=== PATIENT | male | born 1980 | race Caucasian/White ===

== ENCOUNTER 2016-12-07 11:27 | Emergency (ER) | payer OTHER ==
[2016-12-07 11:52] VITALS: BP 136/66; PULSE 64; RESP 18; TEMP 98.3
[2016-12-07] MEDS ORDERED: MAG HYDROX/AL HYDROX/SIMETH 30 ML, HYOSCYAMINE ELIXIR 10 ML, CIMETIDINE HCL 300 MG PO STA ×3 (15:22)
--- NOTE | 2016-12-07 15:26 | ED ---
General Adult HPI - General Chief complaint: Shortness of Breath Stated complaint: SOB/abdominal pain Time Seen by Provider: 12/07/16 15:11 Source: patient, family, RN notes reviewed Mode of arrival: ambulatory Limitations: no limitations - History of Present Illness Initial comments: Chief complaint and history of present illness a 36-year-old male here with his . Patient reports for the past week or longer has been having some epigastric discomfort. Also admits that he drinks a sixpack or more per night. He also admits to being slightly anxious. No associated radiation of discomfort pain is not made better or worse by doing anything. Has not tried any antacids. He does state that burping seems to help ease the discomfort. - Related Data Previous Rx's Medication Instructions Recorded Famotidine [Pepcid] 20 mg PO DAILY #40 tablet 12/07/16 Allergies Allergy/AdvReac Type Severity Reaction Status Date / Time No Known Allergies Allergy Verified 12/07/16 15:12 Review of Systems ROS Statement: Those systems with pertinent positive or pertinent negative responses have been documented in the HPI. Review of systems no visual acuity changes no complaint headache no chest pain no nausea or vomiting. He states he has a sensation of slight shortness of breath because of epigastric discomfort which is worse at night when he states his anxiety tends to increase. No change in color stool. No change in appetite. No sweats. No complaint of a neuro deficits. All systems were reviewed. Past medical problems none. Surgeries on the10 years old. No family history of cancer or heart disease. Patient denies ALLERGIES. He does chew tobacco warned of the complications of mouth cancer. Advised to stop. Drinks alcohol daily 4-6 cans of beer per day. Advised to decrease to significantly. family physician if needed ROS Other: All systems not noted in ROS Statement are negative. Past Medical History Past Medical History: No Reported History History of Any Multi-Drug Resistant Organisms: None Reported Additional Past Surgical History / Comment(s): jumana Past Psychological History: No Psychological Hx Reported Smoking Status: Never smoker Past Alcohol Use History: Daily Past Drug Use History: None Reported General Exam - General Exam Comments Initial Comments: General: The patient is awake and alert, in no distress, and does not appear acutely ill. Complains of mild epigastric discomfort and a sensation of shortness of breath when he lays down at night. Vital signs shows temperature 98.3 pulse 64 respiratory rate 18 pulse ox 90% room air blood pressure 136/66. Eye: Pupils are equal, , extra-ocular movements are intact; there is normal conjunctiva bilaterally. No signs of icterus. Ears, nose, mouth and throat: There are moist mucous membranes Neck: The neck is supple, there is no tenderness Cardiovascular: There is a regular rate and rhythm. No murmur, rub or gallop is appreciated. Respiratory: Lungs are clear to auscultation, respirations are non-labored, breath sounds are equal. No wheezes, stridor, rales, or rhonchi. Gastrointestinal: Soft, non-distended, non-tender abdomen without masses or organomegaly noted. There is no rebound or guarding present. No CVA tenderness. Bowel sounds are unremarkable. Back: There is no tenderness to palpation in the midline. There is no obvious deformity. No rashes noted. Musculoskeletal: Normal ROM, no tenderness, There is no pedal edema. There is no calf tenderness or swelling. Sensation intact. Neurological: No complaint of or any evidence of any neuro deficits. Skin: Skin is warm and dry and no rashes or lesions are noted. Limitations: no limitations Course Vital Signs 12/07/16 11:49 Temperature 98.3 F Pulse Rate 64 Respiratory 18 Rate Blood Pressure 136/66 O2 Sat by Pulse 98 Oximetry EKG Findings - EKG Comments: EKG Findings:: EKG was done and reviewed at 1540 showing normal sinus rhythm with first-degree AV block no acute ST elevation no ectopy no ischemic changes. Rate 64. Was 212 QRS 94 QT [address] Contreras Medical Decision Making - Medical Decision Making Medical decision making the patient's white count is 10.8 hemoglobin 15 hematocrit of 44 d-dimer normal at less than 0.17. Potassium is 4.2, BUN 12 creatinine 1.02 with a GFR greater than 60. Glucose 89. Amylase lipase normal limits. Total bilirubin mildly elevated at 1.6. No other elevated liver enzymes. Chest x-ray is done AP and lateral views and reviewed by radiologist his final impression is in no acute pulmonary process. As read by Dr. Wallace x-ray of the abdomen was also done and reviewed by radiologist his impression is nonspecific abdomen as read by Dr. Wallace. Patient was given a GI cocktail which seemed to help him significantly. We discussed his labs. Mildly elevated total bilirubin was discussed. Decreasing the amount of alcohol he consumes was strongly suggested. He stopped to go on Pepcid 20 mg daily. He is to use antacids as needed, one hour after meals and at bedtime. Also advised to follow-up with family physician. Told to stay away from greasy fatty foods and he may need to have an ultrasound if symptoms persist for the stability of gallbladder issues. - Lab Data Result diagrams: 12/07/16 16:00 12/07/16 16:00 Lab Results 12/07/16 12/07/16 12/07/16 Range/Units 16:00 16:00 16:00 WBC 10.8 H (3.8-10.6) k/uL RBC 5.06 (4.30-5.90) m/uL Hgb 15.2 (13.0-17.5) gm/dL Hct 44.8 (39.0-53.0) % MCV 88.5 (80.0-100.0) fL MCH 30.0 (25.0-35.0) pg MCHC 33.9 (31.0-37.0) g/dL RDW 12.6 (11.5-15.5) % Plt Count 288 (150-450) k/uL Neutrophils % 73 % Lymphocytes % 19 % Monocytes % 4 % Eosinophils % 0 % Basophils % 1 % Neutrophils # 7.9 H (1.3-7.7) k/uL Lymphocytes # 2.1 (1.0-4.8) k/uL Monocytes # 0.4 (0-1.0) k/uL Eosinophils # 0.0 (0-0.7) k/uL Basophils # 0.1 (0-0.2) k/uL D-Dimer (<0.60) mg/L FEU Sodium 140 (137-145) mmol/L Potassium 4.2 (3.5-5.1) mmol/L Chloride 104 (98-107) mmol/L Carbon Dioxide 28 (22-30) mmol/L Anion Gap 8 mmol/L BUN 12 (9-20) mg/dL Creatinine 1.02 (0.66-1.25) mg/dL Est GFR (MDRD) Af Amer >60 (>60 ml/min/1.73 sqM) Est GFR (MDRD) Non-Af >60 (>60 ml/min/1.73 sqM) Glucose 89 (74-99) mg/dL Calcium 9.5 (8.4-10.2) mg/dL Total Bilirubin 1.6 H (0.2-1.3) mg/dL AST 27 (17-59) U/L ALT 41 (21-72) U/L Alkaline Phosphatase 48 (38-126) U/L Total Creatine Kinase 122 (55-170) U/L CK-MB (CK-2) 1.1 (0.0-2.4) ng/mL CK-MB (CK-2) Rel Index 0.9 Troponin I <0.012 (0.000-0.034) ng/mL Total Protein 7.5 (6.3-8.2) g/dL Albumin 4.4 (3.5-5.0) g/dL Amylase 49 (30-110) U/L Lipase 42 (23-300) U/L 12/07/16 Range/Units 16:00 WBC (3.8-10.6) k/uL RBC (4.30-5.90) m/uL Hgb (13.0-17.5) gm/dL Hct (39.0-53.0) % MCV (80.0-100.0) fL MCH (25.0-35.0) pg MCHC (31.0-37.0) g/dL RDW (11.5-15.5) % Plt Count (150-450) k/uL Neutrophils % % Lymphocytes % % Monocytes % % Eosinophils % % Basophils % % Neutrophils # (1.3-7.7) k/uL Lymphocytes # (1.0-4.8) k/uL Monocytes # (0-1.0) k/uL Eosinophils # (0-0.7) k/uL Basophils # (0-0.2) k/uL D-Dimer <0.17 (<0.60) mg/L FEU Sodium (137-145) mmol/L Potassium (3.5-5.1) mmol/L Chloride (98-107) mmol/L Carbon Dioxide (22-30) mmol/L Anion Gap mmol/L BUN (9-20) mg/dL Creatinine (0.66-1.25) mg/dL Est GFR (MDRD) Af Amer (>60 ml/min/1.73 sqM) Est GFR (MDRD) Non-Af (>60 ml/min/1.73 sqM) Glucose (74-99) mg/dL Calcium (8.4-10.2) mg/dL Total Bilirubin (0.2-1.3) mg/dL AST (17-59) U/L ALT (21-72) U/L Alkaline Phosphatase (38-126) U/L Total Creatine Kinase (55-170) U/L CK-MB (CK-2) (0.0-2.4) ng/mL CK-MB (CK-2) Rel Index Troponin I (0.000-0.034) ng/mL Total Protein (6.3-8.2) g/dL Albumin (3.5-5.0) g/dL Amylase (30-110) U/L Lipase (23-300) U/L Disposition Clinical Impression: GERD with esophagitis Disposition: HOME SELF-CARE Condition: Fair Instructions: Diet for Stomach Ulcers and Gastritis (ED), Gastroesophageal Reflux Disease (ED) Additional Instructions: Eat frequent small meals. Decrease alcohol consumption. Use antacids as needed , one hours after meals and at bedtime. Use Pepcid daily. No chewing tobacco no alcohol. Follow-up with family physician. Further evaluation for gallbladder problems suggested as an outpatient with your family doctor. Prescriptions: Famotidine [Pepcid] 20 mg PO DAILY #40 tablet Time of Disposition: 17:02
[2016-12-07 16:25] LABS: Basophils # (A) 0.1 k/uL (0-0.2); Basophils % (A) 1 %; Eosinophils % (A) 0 %; HCT 44.8 % (39.0-53.0); HDW 2.42; HGB 15.2 gm/dL (13.0-17.5); Luc # (Auto) 0.24; Luc % (Auto) 2; Lymphocytes # (A) 2.1 k/uL (1.0-4.8); Lymphocytes % (A) 19 %; MCHC 33.9 g/dL (31.0-37.0); MCV 88.5 fL (80.0-100.0); Mean Platelet Volume 7.3; Monocytes # (A) 0.4 k/uL (0-1.0); Monocytes % (A) 4 %; Neutrophils # (A) 7.9 k/uL (1.3-7.7); Neutrophils % (A) 73 %; RBC 5.06 m/uL (4.30-5.90); RDW 12.6 % (11.5-15.5); WBC 10.8 k/uL (3.8-10.6)
[2016-12-07 16:40] LABS: ALT 41 U/L (21-72); AST 27 U/L (17-59); Alkaline Phosphatase 48 U/L (38-126); Amylase 49 U/L (30-110); Anion Gap 8 mmol/L; Blood Urea Nitrogen 12 mg/dL (9-20); Calcium 9.5 mg/dL (8.4-10.2); Carbon Dioxide 28 mmol/L (22-30); Chloride 104 mmol/L (98-107); Creatine Kinase 122 U/L (55-170); Glucose 89 mg/dL (74-99); Non-African American GFR(MDRD) >60 (>60 ml/min/1.73 sqM); Potassium 4.2 mmol/L (3.5-5.1); Sodium 140 mmol/L (137-145); Total Bilirubin 1.6 mg/dL (0.2-1.3); Total Protein 7.5 g/dL (6.3-8.2)
--- NOTE | 2016-12-07 16:51 | XR ---
EXAMINATION TYPE: XR chest 2V DATE OF EXAM: 12/07/2016 4:46 PM COMPARISON: NONE INDICATION: Chest pain epigastric pain TECHNIQUE: Single frontal view of the chest is obtained. FINDINGS: The heart size is normal. The pulmonary vasculature is normal. The lungs are clear. IMPRESSION: 1. No acute pulmonary process.
[2016-12-07 16:52] LABS: Creatine Kinase MB 1.1 ng/mL (0.0-2.4); Troponin I <0.012 ng/mL (0.000-0.034)
--- NOTE | 2016-12-07 16:52 | XR ---
EXAMINATION TYPE: XR abdomen 2V DATE OF EXAM: 12/07/2016 4:46 PM COMPARISON: NONE INDICATION: Epigastric discomfort TECHNIQUE: Single view abdomen supine upright views FINDINGS: Nonspecific bowel gas is present within small bowel loops as well as the colon. There is an air-fluid level within the left mid abdomen small bowel loop. No differential air-fluid levels are present. Psoas margins are normal. No organomegaly is present. IMPRESSION: 1. Nonspecific abdomen.
== END 2016-12-07 17:17 | disposition home or self-care (01) ==
LOC: EC 11:27
DX: K21.0 Gastro-esophageal reflux disease with esophagitis (principal); R06.02 Shortness of breath
CPT/HCPCS: 36415; 71020; 74020; 80053; 82150; 82550; 82553; 83690; 84484; 85025; 85379; 93005; 99285